=== PATIENT | female | born 1955 | race Caucasian/White ===

== ENCOUNTER → 2016-10-08 | Outpatient (CLI) | payer BC, OTHER ==
[~2016-10-08] MED LIST: E-Z-PAQUE 96% w/w SUSP 176GM BTL As Ordered ONE; VARIBAR NECTAR 40% w/v 240ML SUSP BTL As Ordered ONE; VARIBAR PUDDING 40% w/v 230ML TUBE As Ordered ONE
--- NOTE | 2016-10-08 15:30 | REP ---
COOKIE SWALLOW: The procedure was performed under the direct supervision of Dr. Richardson. The procedure was performed with Belia Alan from speech pathology present. 5 mL aliquots of nectar, pudding, solid and thin consistency barium was administered. There is no evidence of penetration or aspiration. A detailed report of this examination will be provided by speech pathology. 32 seconds of fluoroscopy time was utilized for this procedure. Reviewed by CRISTOBAL Guillaume 10/08/2016 04:12 PEdited and Signed by Ricky Richardson MD 10/08/2016 05:24 P
== END ==
LOC: M ST 10:42
PROVIDERS: ATTEND Family Medicine
DX: R13.13 Dysphagia, pharyngeal phase (principal)